=== PATIENT | female | born 1985 ===

== ENCOUNTER 2025-02-14 12:00 | Emergency (ER) | payer OTHER ==
[~2025-02-14] VITALS: Ht 170.2 cm; Wt 90.7 kg
[2025-02-14 13:38] LABS: Influenza A, PCR NEGATIVE (NEGATIVE); Influenza B, PCR NEGATIVE (NEGATIVE); Resp Syncytial Virus, PCR NEGATIVE (NEGATIVE); SARS-Cov-2 (COVID-19) PCR, MMC NEGATIVE (NEGATIVE)
[2025-02-14] MEDS ORDERED: BENZ100A PO (15:34)
[2025-02-14] MEDS ORDERED: ONDA4ODT MM (15:34)
[2025-02-14] MEDS ORDERED: ALBU90OI INH (15:34)
[2025-02-14] MEDS ORDERED: IBUP800 PO (15:35)
== END 2025-02-14 15:39 | disposition home or self-care (01) ==
LOC: ER 12:00
PROVIDERS: Student in an Organized Health Care Education/Training Program
DX: J40 Bronchitis, not specified as acute or chronic (principal); Z87.891 Personal history of nicotine dependence; Z91.030 Bee allergy status; Z88.5 Allergy status to narcotic agent
CPT/HCPCS: 0241U; 71046; 99283-25

== ENCOUNTER 2025-07-26 09:40 | Emergency (ER) | payer OTHER ==
[~2025-07-26] VITALS: Ht 170.2 cm; Wt 95.2 kg
[~2025-07-26 09:40] MED LIST: ALBU90OI INH; BENZ100A PO; IBUP800 PO; ONDA4ODT MM
[2025-07-26] MEDS ORDERED: Prednisone20 MG PO (10:51)
== END 2025-07-26 11:01 | disposition home or self-care (01) ==
LOC: ER 09:40
DX: T49.8X1A Poisoning by other topical agents, accidental (unintentional), initial encounter (principal); L25.0 Unspecified contact dermatitis due to cosmetics; I10 Essential (primary) hypertension
CPT/HCPCS: 99283; A9270; J7512